=== PATIENT | female | born 1990 | race Caucasian/White ===

== ENCOUNTER 2016-08-09 11:11 | Inpatient (IN) | payer OTHER ==
[~2016-08-09] VITALS: Ht 167.6 cm; Wt 86.2 kg
[2016-08-09 13:59] LABS: HEMOGLOBIN 10.9 gm/dl (12.3-15.3); RED BLOOD COUNT 3.99 M/UL (4.00-5.10); WHITE BLOOD COUNT 11.6 K/UL (4.5-11.0)
[2016-08-11 04:47] LABS: HEMOGLOBIN 9.5 gm/dl (12.3-15.3)
== END 2016-08-12 18:45 | disposition home or self-care (01) | DRG 775 ==
LOC: GENOP 11:11 → OB 13:30
PROVIDERS: Obstetrics & Gynecology; ADMIT Obstetrics & Gynecology
PROC: 3E0R3CZ (ICD-10-PCS; 2016-08-09)
PROC: 10E0XZZ Delivery of Products of Conception, External Approach (ICD-10-PCS; principal; 2016-08-10)
PROC: 0KQM0ZZ Repair Perineum Muscle, Open Approach (ICD-10-PCS; 2016-08-10)
DX: O42.013 Preterm premature rupture of membranes, onset of labor within 24 hours of rupture, third trimester (principal); O24.420 Gestational diabetes mellitus in childbirth, diet controlled; O36.63X0 Maternal care for excessive fetal growth, third trimester, not applicable or unspecified; O66.0 Obstructed labor due to shoulder dystocia; O70.1 Second degree perineal laceration during delivery; O34.43 Maternal care for other abnormalities of cervix, third trimester; N88.2 Stricture and stenosis of cervix uteri; Z3A.36 36 weeks gestation of pregnancy; Z37.0 Single live birth; O99.214 Obesity complicating childbirth; E66.9 Obesity, unspecified; Z68.30 Body mass index [BMI] 30.0-30.9, adult; Z98.890 Other specified postprocedural states; Z83.3 Family history of diabetes mellitus; Z82.49 Family history of ischemic heart disease and other diseases of the circulatory system; Z80.9 Family history of malignant neoplasm, unspecified
CPT/HCPCS: 36415; 51702; 81001; 82800; 82962; 83518; 85014; 85018; 85025; J2300; J2405; J2590; J2795; J3010; J7030; J7120

== ENCOUNTER → 2021-02-04 | Outpatient (CLI) | payer OTHER ==
[~2021-02-04] MED LIST: BIRTH CONTROL PILL PO; NORCO 5-325 TA1 EACH PO
== END ==
LOC: KOH-I 14:30
DX: N28.1 Cyst of kidney, acquired (principal)
CPT/HCPCS: 76775

== ENCOUNTER 2021-08-14 19:15 | Emergency (ER) | payer OTHER ==
[2021-08-14 20:11] LABS: HEMOGLOBIN 13.5 gm/dl (12.3-15.3); RED BLOOD COUNT 4.5 M/UL (4.00-5.10); WHITE BLOOD COUNT 8.2 K/UL (4.5-11.0)
[2021-08-14 20:31] LABS: BUN/CREATININE RATIO 16 (0-10)
== END 2021-08-15 00:49 | disposition home or self-care (01) ==
LOC: ER1 19:15
PROVIDERS: Physician Assistant
DX: M25.551 Pain in right hip (principal); R10.31 Right lower quadrant pain; M54.50 Low back pain, unspecified
CPT/HCPCS: 80053; 81001; 83690; 84703; 85025; 87086; 99284; Q9967